=== PATIENT | male | born 2005 | race Two or more races ===

== ENCOUNTER 2024-01-06 13:14 | Inpatient (IN) | payer MEDICAID, OTHER ==
[~2024-01-06] VITALS: Ht 180.3 cm; Wt 123.4 kg
[2024-01-06 16:45] LABS: HEMATOCRIT 42.3 % (41-53); HEMOGLOBIN 13.9 g/dL (13.5-17.5); LYMPHOCYTES # (AUTO) 3.2 K/uL (1.0-4.8); MONOCYTES # (AUTO) 0.7 K/uL (0.1-1.0); WHITE BLOOD COUNT (AUTO) 9.7 K/uL (4.5-11.0)
[2024-01-06 16:48] LABS: BASOPHILS % (AUTO) 1.1 % (0.0-2.0); EOSINOPHILS % (AUTO) 3.9 % (1.0-6.0); LYMPHOCYTES % (AUTO) 33.4 % (22.0-44.0); MEAN CORPUSCULAR HEMOGLOBIN 27.9 pg (26.0-34.0); MEAN CORPUSCULAR HGB CONC 32.9 G/dL (31.0-37.0); MEAN CORPUSCULAR VOLUME 85 fL (80-100); MONOCYTES % (AUTO) 6.9 % (2.0-9.0); NEUTROPHILS # (AUTO) 5.3 K/uL (1.8-7.7); NEUTROPHILS % (AUTO) 54.7 % (40.0-70.0); PLATELET COUNT (AUTO) 324 K/uL (150-450); RED BLOOD CELL COUNT(AUTO) 4.98 MIL/uL (4.50-5.90); RED CELL DISTRIBUTION WIDTH 14.6 % (11.5-14.5)
[2024-01-06 16:57] LABS: ANION GAP 5 mmol/L (8-16); CALCIUM, TOTAL 8.4 mg/dL (8.8-10.5); CARBON DIOXIDE 29 mmol/L (22-29); CHLORIDE 102 mmol/L (98-107); CREATININE 0.78 mg/dL (0.60-1.30); GLOMERULAR FILTR. RATE CALC > 60 mL/min (>60); GLUCOSE,RANDOM 87 mg/dL (70-110); POTASSIUM 3.2 mmol/L (3.5-5.1); SODIUM SERUM 136 mmol/L (136-145); UREA NITROGEN, BLOOD 8 mg/dL (7-18)
[2024-01-06 17:04] LABS: ALCOHOL, BLOOD (SERUM) < 3 mg/dL (0-10)
[2024-01-06 17:24] LABS: PH,URINE DRUG SCREEN 6.5 (5.0-8.0)
[2024-01-06 17:31] LABS: ALCOHOL, URINE DRUG SCREEN NEGATIVE (NEGATIVE); AMPHET/METH SCREEN,URINE NEGATIVE (NEGATIVE); BARBITURATE SCREEN, URINE NEGATIVE (NEGATIVE); BENZODIAZEPINES SCREEN,URINE NEGATIVE (NEGATIVE); CANNABINOID SCREEN,URINE NEGATIVE (NEGATIVE); COCAINE SCREEN,URINE NEGATIVE (NEGATIVE); METHADONE SCREEN, URINE NEGATIVE (NEGATIVE); OPIATE SCREEN,URINE NEGATIVE (NEGATIVE); PHENCYCLIDINE SCREEN,URINE NEGATIVE (NEGATIVE)
[2024-01-06] MEDS: POTASSIUM CHLORIDE 20 MEQ ER TABLET PO ONE (19:23)
[2024-01-06] MEDS ORDERED: ZOLPIDEM TARTRATE 10 MG TABLET PO PRN (21:00)
[2024-01-06] MEDS ORDERED: HALOPERIDOL 5 MG TABLET PO PRN (21:00)
[2024-01-06] MEDS ORDERED: LORazepam 2 MG TABLET PO PRN (21:00)
[2024-01-06 22:24] LABS: COVID AG,FIA SOURCE NASAL SWAB
[2024-01-06 22:38] LABS: SARS-COV2 (COVID) ANTIGEN,FIA Negative (Negative)
[2024-01-07 01:56] VITALS: BP 122/67; PULSE 79; RESP 19; TEMP 97.9
[2024-01-07 08:29] VITALS: BP 122/64; PULSE 84; RESP 18; TEMP 97.5; O2SAT 96
[2024-01-07] MEDS ORDERED: SERT-440 PO (09:57)
[2024-01-07] MEDS: SERTRALINE HCL 100 MG TABLET PO SCH (10:36)
[2024-01-07] MEDS ORDERED: LOPERAMIDE HCL 2 MG CAPSULE PO PRN (13:15)
[2024-01-07] MEDS ORDERED: MAG HYDROX/ALUMINUM HYD/SIMETH ES 30 ML SUSPENSION UDCUP PO PRN (13:15)
[2024-01-07] MEDS ORDERED: NICOTINE 14 MG/24 HOUR PATCH TD PRN (13:15)
[2024-01-07] MEDS ORDERED: DOCUSATE SODIUM 100 MG CAPSULE PO PRN (13:15)
[2024-01-07] MEDS ORDERED: ACETAMINOPHEN 325 MG TABLET PO PRN (13:15)
[2024-01-07] MEDS ORDERED: GuaiFENesin/D-METHORPHAN [SUGAR-FREE] 200-20MG/10 ML SYRUP UDCUP PO PRN (13:15)
[2024-01-07] MEDS ORDERED: MAGNESIUM HYDROXIDE SUSPENSION 30 ML UDCUP PO PRN (13:15)
[2024-01-07] MEDS ORDERED: ALBUTEROL SULFATE HFA 90 MCG/PUFF 8 GM INHALER IH PRN (13:15)
[2024-01-07] MEDS ORDERED: PETROLATUM,WHITE 28 GM JELLY TP PRN (13:15)
[2024-01-07] MEDS ORDERED: IBUPROFEN 400 MG TABLET PO PRN (13:15)
[2024-01-07] MEDS ORDERED: CloNIDine HCL 0.1 MG TABLET PO PRN (13:15)
[2024-01-07] MEDS ORDERED: ONDANSETRON HCL 4 MG TABLET PO PRN (13:15)
[2024-01-07 20:29] VITALS: BP 134/69; PULSE 78; RESP 17; TEMP 97.7; O2SAT 96
[2024-01-08 09:02] VITALS: BP 127/67; PULSE 76; RESP 18; TEMP 97.7; O2SAT 94
[2024-01-08 09:03] LABS: POTASSIUM 3.8 mmol/L (3.5-5.1)
[2024-01-08 09:15] LABS: HEMOGLOBIN A1C 5.6 % (3.8-5.6)
[2024-01-08 09:49] LABS: THYROID STIMULATING HORMONE 2.68 uIU/mL (0.36-3.74)
[2024-01-08 20:15] VITALS: BP 114/71; PULSE 81; RESP 18; TEMP 98.2; O2SAT 96
[2024-01-09 08:03] VITALS: BP 123/69; PULSE 70; RESP 17; TEMP 98; O2SAT 97
[2024-01-09 20:11] VITALS: BP 127/72; PULSE 72; RESP 18; TEMP 97.7; O2SAT 97
[2024-01-10 08:30] VITALS: BP 115/69; PULSE 86; RESP 17; TEMP 97.7; O2SAT 95
[2024-01-10 20:31] VITALS: BP 124/64; PULSE 85; RESP 18; TEMP 97.8; O2SAT 96
[2024-01-11] MEDS ORDERED: SERT-440 PO (06:34)
[2024-01-11 08:09] VITALS: BP 117/64; PULSE 69; RESP 16; TEMP 97.3; O2SAT 96
== END 2024-01-11 17:42 | disposition home or self-care (01) | DRG 885 ==
LOC: EMS 13:27 → B3A 22:29
PROVIDERS: ADMIT Psychiatry & Neurology Psychiatry; ATTEND Psychiatry & Neurology Psychiatry
PROC: GZHZZZZ Group Psychotherapy (ICD-10-PCS; principal; 2024-01-07)
PROC: GZ51ZZZ Individual Psychotherapy, Behavioral (ICD-10-PCS; 2024-01-07)
DX: F33.2 Major depressive disorder, recurrent severe without psychotic features (principal); F79 Unspecified intellectual disabilities; E87.6 Hypokalemia; E66.01 Morbid (severe) obesity due to excess calories; F84.0 Autistic disorder; Z20.822 Contact with and (suspected) exposure to COVID-19; F98.8 Other specified behavioral and emotional disorders with onset usually occurring in childhood and adolescence; G47.00 Insomnia, unspecified; R45.850 Homicidal ideations; Z79.899 Other long term (current) drug therapy; Z68.37 Body mass index [BMI] 37.0-37.9, adult
CPT/HCPCS: 80048; 80061; 80307; 83036; 84132; 84443; 85025; 99285; G0480